=== PATIENT | female | born 1940 | race African-American/Black ===

== ENCOUNTER → 2016-05-03 | Outpatient (CLI) | payer MEDICARE, MEDICAID ==
[~2016-05-03] MED LIST: ATOR40TA70 PO; CYCL-374 PO; DIGO125T82 PO; DOCU250C75 PO; DOXA4TAB2 PO; FLUC100T PO; GABA-529 PO; HYDR-523 PO; METF500T PO; METO5TAB86 PO; POTA20TA82 PO; PROT40; VALS160T2 PO; VERA240C2 PO
== END | disposition home or self-care (01) ==
LOC: CT 10:07
PROVIDERS: ATTEND Internal Medicine Geriatric Medicine
DX: S09.8XXA Other specified injuries of head, initial encounter (principal); W20.8XXA Other cause of strike by thrown, projected or falling object, initial encounter; Y93.89 Activity, other specified; Y92.89 Other specified places as the place of occurrence of the external cause
CPT/HCPCS: 70450